=== PATIENT | female | born 1945 | race Caucasian/White ===

== ENCOUNTER 2017-06-04 06:45 | Inpatient (IN) | payer MEDICARE, BC ==
[~2017-06-04 06:45] MED LIST: CEFAZOLIN 2 Gram 2 GM/50 ML BAG IVPB ONE; CELECOXIB 100 MG CAPSULE PO ONE; FAMOTIDINE 20MG TABLET PO ONE; MECLIZINE 25 MG TABLET PO ONE; METOCLOPRAMIDE 10 MG TABLET PO ONE; VANCOMYCIN HCL 1,000 MG in DEXTROSE 5 % IN WATER 250 ML IVPB ONE
[2017-06-04 08:03] LABS: ABO GROUP A; ANTIBODY SCREEN NEGATIVE (NEGATIVE); RH TYPE POSITIVE
[2017-06-04] MEDS ORDERED: ACETAMINOPHEN W/ CODEINE 300MG/30MG TABLET PO PRN (10:52)
[2017-06-04] MEDS ORDERED: HYDROCODONE/APAP 10/325 TABLET PO PRN (10:52)
[2017-06-04] MEDS ORDERED: HYDROMORPHONE HCL 2 MG/ML VIAL IM PRN (10:52)
[2017-06-04] MEDS ORDERED: MAGNESIUM HYDROXIDE 30 ML UDC PO PRN (10:52)
[2017-06-04] MEDS ORDERED: NALOXONE 0.4 MG/1 ML VIAL IVP PRN (10:52)
[2017-06-04] MEDS ORDERED: ZOLPIDEM TARTRATE 5 MG TABLET PO PRN (10:52)
[2017-06-04] MEDS ORDERED: ONDANSETRON HCL IV 4 MG/2 ML VIAL IVP PRN (10:52)
[2017-06-04] MEDS ORDERED: BISACODYL 10 MG SUPP RC PRN (10:52)
[2017-06-04] MEDS ORDERED: AL HYDROX/MAG HYDROX 30ML UD PO PRN (10:52)
[2017-06-04] MEDS ORDERED: ACETAMINOPHEN W/ CODEINE 300MG/60MG TABLET PO PRN ×2 (10:52)
[2017-06-04] MEDS ORDERED: ACETAMINOPHEN 325 MG TAB PO PRN (10:52)
[2017-06-04] MEDS ORDERED: TRAMADOL HCL 50 MG TABLET PO PRN (10:52)
[2017-06-04] MEDS ORDERED: KETOROLAC 30 MG/ML VIAL IVP PRN ×2 (10:52)
[2017-06-04] MEDS ORDERED: TRAZODONE 50 MG TABLET PO PRN (11:14)
[2017-06-04] MEDS ORDERED: ALBUTEROL HFA 8 GM INHALER INH PRN (11:15)
[2017-06-04] MEDS: POTASSIUM CHLORIDE/D5-0.9%NACL 20 MEQ/1,000 ML BAG IV SCH ×2 (13:05→21:21)
[2017-06-04] MEDS ORDERED: HYDROMORPHONE PF 1MG/ML **AMPULE IV ONE ×2 (13:28→15:43)
--- NOTE | 2017-06-04 13:59 | Rehab Evaluation ---
Patient Information - Patient Information Diagnosis: DJD L Knee Ordered Treatment: PT Evaluate and Treat Status: Initial Evaluation Surgery: Yes (L TKA) Date of Surgery: 06/04/17 Past Medical/Surgical Hx: PAST MEDICAL/SURGICAL HISTORY Past Surgical History partial hyst tonsils back sx left wrist ORIF RCTR c scope EGD PMH - Respiratory Hx Respiratory Disorders Yes Hx Asthma Yes: cough varient asthma. bothers her in the morning and at night uses inhaler. Hx Bronchitis Yes Hx Pneumonia Yes Hx of Productive Cough Yes: in ams after using inhaler PMH - Cardiovascular Hx Cardiovascular Disorders Yes Hx Hypertension Yes: on meds good control Hx Irregular Heartbeat Yes: a fib dx'd 2013 on meds to control it. 24 HOUR MONITORING AFTER SX PER CARD Hx Heart Murmur Yes Exercise Tolerance Good Hx of Migraines Yes: hx of PMH - Neuro Hx Neurological Disorders Yes Hx Neuropathy Yes: feet Hx Weakness Yes: knees PMH - GI Hx Gastrointestinal Disorders Yes Hx Gastroesophageal Reflux Yes Hx Irritable Bowel Yes: constipation Comment: had bleed after polyp removal PMH - Hx Genitourinary Disorders Yes Hx Bladder Problem Yes: fallen bladder Comment: S/P hyst PMH - Endocrine Hx Endocrine Disorders No PMH - Musculoskeletal Hx Musculoskeletal Disorders Yes Hx Arthritis Yes Hx Back Injury Yes Hx Osteoporosis Yes PMH - Psych Hx Psychiatric Problems No PMH - Hematology/Oncology Hx Hematology/Oncology Yes Disorders Hx Anemia Yes Hx Blood Transfusion Reaction No Social History: Detail (The patient lives in a 2 story home with her . The patient has 3 steps to enter the home with one railing (side unspecified). The patient states that she will be using the second story once returning home, and the second story has a full flight of stairs to ascend/descend, with a railing on the right side ascending. The patient has a tub/shower combination with shower seat and hand-held shower head, but does not have grab bars. The toilet is standard height, and does not have grab bars present. The patient will be using a standard walker for ambulation, and will advance to a single point cane as she progresses) Precautions: [place], Other (WBAT on L) - Time With Patient Total Time Spent With Patient (Min): 30 Treatment Procedures: Detail (PT Initial Evaluation) Subjective Information - Subjective Information Per Patient (The patient reported no pain, nausea or dizziness prior to initating therapy. She did have complaints of itching.) Objective Data - Pain Pain Present: No Pain Intensity: 0 Pain Scale Used: Numeric (1 - 10) - Mental Status Patient Orientation: Oriented x3 - ROM Within normal limits (The patient was within functional limits for activities completed at initial evaluation. The patient was limited with L Knee ROM as expected s/p L TKA) - Strength/Tone Within normal limits (The patient was within functional limits for activities completed at initial evaluation. L Knee was limited as expected s/p L TKA) - Bed Mobility Independent (The patient was independent with transferring from supine to sit at the edge of the bed. She was independent with transferring back into bed after ambulation. She was independent with scooting to the middle of the bed.) - Transfers Independent (The patient was independent with sit to stand and stand to sit. Per nursing, she was independent with transferring to and from the toilet.) - Balance Balance Sitting: Good (No LOB with sitting at the bedside prior to ambulation) Balance Standing: Good (No LOB with immediate standing at the bedside. No LOB with gait activities completed.) - Sensation Intact - Gait Detail (The patient used a standard walker and WBAT on L during ambulation. She was able to ambulate to Room 19 and back (a total of 80 feet) without rest break. She had no complaints of pain with ambulation, and denied feelings of dizziness/nausea.) - Special Tests No Therapy Assessment - Therapy Assessment Detail (The patient was independent with bed mobility and transfers. The patient had limitations with ROM and strength in the L Knee as expected s/p L TKA. The patient tolerated gait activities without issues, but ability to ascend /descend stairs was not assessed at initial evaluation.) Patient Education - Patient Education Teaching Topic: Exercise/Activity (HEP was instructed and reviewed, which included: Heel Slides/Hamstring Sets, Quad Sets, SLR, Ankle Pumps and glute. sets. She was instructed to complete 10 reps, 1-2x/day or to tolerance.) Response: Return Demonstration, Verbalize Understanding Teaching Method: Discussion, Demonstration Teaching Recipient: Patient Barriers To Learning: None Problem List - Problem List Physical Therapy Problem List: Detail (1) Decreased ROM and strength as expected L TKA 2) Ability to ascend/descend stairs not assessed) Goals - Goals Physical Therapy Goals: 1) The patient will be independent in HEP to increase ROM and Strength in L Knee to increase function. 2) The patient will be able to ascend/descend a full flight of stairs to gain access to the second story safely. 3) The patient will be able to ascend/descend 13-14 stairs to safely enter the home. Prognosis - Prognosis Good Plan - Plan Physical Therapy Plan: The patient will be seen 1-2x/day M-F for gait training, including stairs, and LE strengthening activities.
[2017-06-04] MEDS ORDERED: BUPIVACAINE 0.5% W/EPI MPF 30 ML VIAL IVP ONE (14:00)
[2017-06-04] MEDS ORDERED: TRANEXAMIC ACID 1,000 MG/10 ML ML IV ONE ×2 (14:00)
[2017-06-04] MEDS ORDERED: 0.9 % SODIUM CHLORIDE 10 ML VIAL IVP ONE (14:00)
[2017-06-04] MEDS ORDERED: DIPHENHYDRAMINE HCL IV 50 MG/ML VIAL IVP ONE (15:43)
[2017-06-04] MEDS ORDERED: *PACU ONLY* KETAMINE HCL 10 MG/ML (20ML) VIAL IV ONE (15:43)
[2017-06-04] MEDS ORDERED: PROPOFOL 10 MG/ML VIAL IV ONE (15:43)
[2017-06-04] MEDS ORDERED: MIDAZOLAM HCL 2MG/2ML VIAL IV ONE (15:43)
[2017-06-04] MEDS ORDERED: ONDANSETRON HCL IV 4 MG/2 ML VIAL IVP ONE (15:43)
[2017-06-04] MEDS ORDERED: FENTANYL PF 100MCG/2ML VIAL IV ONE (15:43)
[2017-06-04] MEDS: CEFAZOLIN 2 Gram 2 GM/50 ML BAG IVPB SCH (15:46)
[2017-06-04] MEDS: PANTOPRAZOLE SODIUM 40 MG TABLET PO SCH (15:46)
--- NOTE | 2017-06-04 15:48 | Operative Note ---
DATE: 06/04/2017 PREOPERATIVE DIAGNOSIS: END-STAGE ARTHROSIS OF THE LEFT KNEE. POSTOPERATIVE DIAGNOSIS: END-STAGE ARTHROSIS OF THE LEFT KNEE. PROCEDURE: Cemented left total knee arthroplasty using [employer] [place] II components with a size 5 [place] Chrome femur, size 4 stemmed tibial base plate, a 9 mm lipped tibial insert, and a 32 mm all-plastic patella. STAFF SURGEON: KYLEE TURNER M.D. ANESTHESIA: SPINAL. PREPARATION: CHLORAPREP. INDIVIDUAL CONSIDERATIONS: NONE. PROCEDURE: The patient was taken to the Operating Room and placed supine on the operating table. She had a successful induction of a spinal anesthetic. Her left lower extremity was prepped and draped in the usual fashion. The patient had a midline approach to the knee. The limb was elevated and the tourniquet was inflated to 250 mmHg. Sharp dissection was carried down through the skin and subcutaneous tissue. Small veins were coagulated with a Bovie. A medial arthrotomy was performed. The patella was everted and the knee was flexed. The patient had basically bone loss and exposed bone in the medial and some the patellofemoral compartments. ACL was sacrificed, provisional anterior meniscectomies were performed, capsule was released from the medial proximal tibia, and the fat pad was resected. The initial femoral military pilot hole was then made freehand. The intramedullary femoral cutting jig was placed. It was cut in 7 degrees of valgus and adjusted for rotation and secured with pins for a 10 mm resection. The initial transverse cut was then made. Skin guide was placed in the anterior and posterior military pilot holes and it was found that a size 5 would be appropriate. The anterior and posterior cuts followed by chamfer cuts were made , osteophytes removed, and a size 5 trial was placed and found to fit well. The tibia was brought forward and the remainder of the meniscal remnants were removed with a Bovie. The extra-articular tibial cutting jig was placed and it was cut in neutral with a 3 degree AP slope. Care was taken to adjust for rotation and flexion using the extra-articular alignment guide and riaz landmarks. It was set for a 9 mm resection, keyed off the high lateral side, and secured with pins. When cutting the tibia, care was taken to preserve the PCL insertion on the tibia. After removing large medial osteophytes, it was found that a 9 mm trial and baseplate trial, there was excellent motion and stability. Ligamentous balance, rotation, and alignment were thought to be normal. The femoral military pilot holes were impacted, and a triflange tibial stamp was impacted, and these trial components were removed. The patient had a thick patella and roughly 9 mm of bone was removed freehand. I was easily to be able to fit a 32 mm patella and the three military pilot holes were drilled. The tourniquet was let down briefly to get bleeders posteriorly then placed back up again. The knee was then thoroughly irrigated out with pulsatile Betadine and saline to remove any visual or palpable debris. Bony surfaces were then dried. A size 4 stemmed tibial baseplate was cemented into place, followed by impaction of the 9 mm lipped tibial insert, followed by cementing in a size 5 [place] Chrome femur, followed by cementing in the 32 mm patella. Implant surfaces were compressed, excess cement was removed, and after the cement had set, there was excellent motion and stability. Ligamentous balance, rotation alignment, and patellofemoral tracking were normal. No lateral release was required. Again, tourniquet let down, hemostasis was obtained with a Bovie. Irrigation again was completed and the capsule was the closed with a running #2 Quill. Prior to this, I infiltrated the skin, subcutaneous tissue, and periosteum with 30 mL of 0.50% Marcaine with Epinephrine. The subcut was closed in layers with running 0 Quill and the skin was closed with jennifer. The patient did receive a gram of Tranexamic Acid preoperatively. I mixed a gram of Tranexamic Acid with 30 mL of saline and injected it into the knee through a sterile 18-gauge needle and a sterile [place]kee compressive Aquacel-type dressing was applied. The patient tolerated the procedures well, needle and sponge counts were correct, estimated blood loss was minimal, and she was taken back to the Recovery Room in good condition. There were no complications. cc: Dr. Marc Andre JOB NUMBER: [id number] MTDD
[2017-06-04] MEDS: DIPHENHYDRAMINE HCL 25 MG CAPSULE PO PRN (20:18)
[2017-06-04] MEDS: FLECAINIDE 100 MG PO SCH ×2 (20:22→21:25)
[2017-06-04] MEDS: DOCUSATE SODIUM 100 MG CAPSULE PO SCH (21:18)
[2017-06-04] MEDS ORDERED: MONTELUKAST SODIUM 10MG TABLET PO SCH (22:00)
[2017-06-04] MEDS: HYDROCODONE/APAP 10/325 TABLET PO PRN (22:00)
[2017-06-05] MEDS: CEFAZOLIN 2 Gram 2 GM/50 ML BAG IVPB SCH ×2 (00:02→07:46)
[2017-06-05] MEDS: HYDROCODONE/APAP 10/325 TABLET PO PRN ×4 (01:48→14:17)
[2017-06-05] MEDS: POTASSIUM CHLORIDE/D5-0.9%NACL 20 MEQ/1,000 ML BAG IV SCH ×2 (05:30→13:32)
[2017-06-05] MEDS: PANTOPRAZOLE SODIUM 40 MG TABLET PO SCH (06:30)
[2017-06-05] MEDS: FLECAINIDE 100 MG PO SCH ×2 (06:33→10:05)
[2017-06-05 07:10] LABS: HEMATOCRIT 37.2 % (35.0-47.0); HEMOGLOBIN 11.4 gm/dl (11.6-16.0)
[2017-06-05 07:26] LABS: BLOOD UREA NITROGEN 10 mg/dL (8-23); CREATININE 0.6 mg/dL (0.5-0.9); EST GLOMERULAR FILTRATION RATE > 60 mL/min; GLUCOSE,RANDOM 99 mg/dL (74-109)
[2017-06-05] MEDS: DIPHENHYDRAMINE HCL 25 MG CAPSULE PO PRN (07:57)
[2017-06-05] MEDS ORDERED: AMLODIPINE BESYLATE 5MG TAB PO SCH (10:00)
[2017-06-05] MEDS ORDERED: MULTIVITAMINS/MINERALS TABLET PO SCH (10:00)
[2017-06-05] MEDS ORDERED: FERROUS SULFATE 325 MG TAB PO SCH (10:00)
[2017-06-05] MEDS ORDERED: ASPIRIN 325 MG TAB ENTERIC-COATED PO SCH (10:00)
[2017-06-05] MEDS ORDERED: CALCIUM CARBONATE 500 MG TAB.CHEW PO SCH (10:00)
[2017-06-05] MEDS ORDERED: RIVAROXABAN 10 MG TABLET PO SCH (10:00)
--- NOTE | 2017-06-05 10:02 | Physical Therapy Tx Note ---
Physical Therapy Tx Note - Treatment Note Tolerated: Good Total Time Spent With Patient: 25 Physical Therapy Tx Note: Detail (The patient was sitting in her chair upon arrival. The patient was independent with transferring from sit to stand. She was able to ambulate from her room to the nurse's station (about 30 feet) with a standard walker and WBAT on L. She was then able to ascend/descend 10 stairs with supervision and hand-hold assist x 1. She was then able to ambulate from the nurse's station to Room 28/29 back to her room (about 90 feet total) with standard walker and WBAT on L. She was able to transfer from stand to sit. She tolerated therapy well, and has completed all therapy skills to be discharged home.) Physical Therapy Problem List: Detail (1) Decreased ROM and strength as expected L TKA 2) Ability to ascend/descend stairs not assessed) Physical Therapy Goals: 1) The patient will be independent in HEP to increase ROM and Strength in L Knee to increase function - MET. 2) The patient will be able to ascend/descend a full flight of stairs (13-14) to gain access to the second story safely - MET. 3) The patient will be able to ascend/descend 3-4 stairs to safely enter the home. - MET Prognosis: Good Physical Therapy Plan: The patient has completed all inpatient Physical Therapy skills and is discharged from inpatient PT. She would benefit from continued Home PT for increased functional ability and LE ROM and strengthening activities.
[2017-06-05] MEDS: DOCUSATE SODIUM 100 MG CAPSULE PO SCH (10:03)
--- NOTE | 2017-06-05 10:24 | Rehab Evaluation ---
Patient Information - Patient Information Diagnosis: DJD L Knee Ordered Treatment: OT Evaluate and Treat Status: Initial Evaluation Surgery: Yes (L TKA) Date of Surgery: 06/04/17 Past Medical/Surgical Hx: PAST MEDICAL/SURGICAL HISTORY Past Surgical History partial hyst tonsils back sx left wrist ORIF RCTR c scope EGD PMH - Respiratory Hx Respiratory Disorders Yes Hx Asthma Yes: cough varient asthma. bothers her in the morning and at night uses inhaler. Hx Bronchitis Yes Hx Pneumonia Yes Hx of Productive Cough Yes: in ams after using inhaler PMH - Cardiovascular Hx Cardiovascular Disorders Yes Hx Hypertension Yes: on meds good control Hx Irregular Heartbeat Yes: a fib dx'd 2013 on meds to control it. 24 HOUR MONITORING AFTER SX PER CARD Hx Heart Murmur Yes Exercise Tolerance Good Hx of Migraines Yes: hx of PMH - Neuro Hx Neurological Disorders Yes Hx Neuropathy Yes: feet Hx Weakness Yes: knees PMH - GI Hx Gastrointestinal Disorders Yes Hx Gastroesophageal Reflux Yes Hx Irritable Bowel Yes: constipation Comment: had bleed after polyp removal PMH - Hx Genitourinary Disorders Yes Hx Bladder Problem Yes: fallen bladder Comment: S/P hyst PMH - Endocrine Hx Endocrine Disorders No PMH - Musculoskeletal Hx Musculoskeletal Disorders Yes Hx Arthritis Yes Hx Back Injury Yes Hx Osteoporosis Yes PMH - Psych Hx Psychiatric Problems No PMH - Hematology/Oncology Hx Hematology/Oncology Yes Disorders Hx Anemia Yes Hx Blood Transfusion Reaction No Premorbid Status: Detail (Patient lives with spouse in a 2 story house with basement. Her bedroom is on the second floor and she has the laundry in the basement. She has 3 steps at the entrance with "shelves" that she can hold onto. She has a tub/shower combination and usually takes a bath although she has a shower bench and hand held shower and will be using that. She has a standard height toilet, no grab bars. She is typically responsible for all home mgmt, meal prep and laundry although her spouse will be assisting. She has a standard walker and straight cane.) Precautions: [place], Other (WBAT on L) - Time With Patient Total Time Spent With Patient (Min): 40 Treatment Procedures: Detail (OT eval low complexity) Subjective Information - Subjective Information Per Patient Objective Data - Pain Pain Present: Yes (04/06) - Mental Status Patient Orientation: Oriented x3 - Visual Perception Appears within normal limits for therapeutic activities (Pt wears glasses.) - ROM Within normal limits (Srinivas UE AROM WNL. Pt wearing left wrist splint due to carpal tunnel syndrome.) - Strength/Tone Within normal limits (Srinivas UE strength WNL) - Coordination Appears within normal limits for therapeutic activities - Bed Mobility Independent (Ind with supine to sit) - Transfers Independent (Ind with sit to stand from EOB) - Balance Balance Sitting: Good Balance Standing: Good - Sensation Intact - Gait Detail (Pt ambulating in room with standard walker Indly.) - ADL's/IADL's Detail (Pt educated and demonstrated learning of modified dressing techniques. She was Ind with total body dressing including socks and tennis shoes. Reviewed modifications for meal prep, showering, laundry and home mgmt tasks, pt verbalized learning.) Therapy Assessment - Therapy Assessment Detail (Pt is safe and Ind with self care activities using modified techniques.) Problem List - Problem List Physical Therapy Problem List: Detail (1) Decreased ROM and strength as expected L TKA 2) Ability to ascend/descend stairs not assessed) Occupational Therapy Problem List: Detail (No current OT problems identified.) Goals - Goals Physical Therapy Goals: 1) The patient will be independent in HEP to increase ROM and Strength in L Knee to increase function - MET. 2) The patient will be able to ascend/descend a full flight of stairs (13-14) to gain access to the second story safely - MET. 3) The patient will be able to ascend/descend 3-4 stairs to safely enter the home. - MET Occupational Therapy Goals: No current OT goals identified. Prognosis - Prognosis Good Plan - Plan Physical Therapy Plan: The patient has completed all inpatient Physical Therapy skills and is discharged from inpatient PT. She would benefit from continued Home PT for increased functional ability and LE ROM and strengthening activities. Occupational Therapy Plan: No further IP OT recommended. Thank you for this referral.
--- NOTE | 2017-06-05 19:51 | Discharge Summary ---
DATE OF ADMISSION: 06/04/17 DATE OF DISCHARGE: 06/05/17 DATE OF SURGERY: 06/04/17 HISTORY: Noemí is a delightful 71-year-old female who presents with end-stage arthrosis of her left knee. She was admitted after a left total knee arthroplasty. Postoperatively she did great. She was independent the night of surgery. Her discharge hemoglobin was 11.4. She did not require transfusion. DISCHARGE INSTRUCTIONS: The plan is to discharge her to home in the care of her family. Home PT and Visiting Nurse have been arranged. She will be given [place] for pain. She will finish up her five days of Xarelto and continue on with her regular Aspirin that she takes daily. The Visiting Nurse will remove her sutures in two weeks. She will follow-up at my office in four weeks. Her discharge condition was good. FINAL DIAGNOSIS/PRIMARY DIAGNOSIS: END-STAGE ARTHROSIS OF THE LEFT KNEE. OPERATIONS AND PROCEDURES: CEMENTED LEFT TOTAL KNEE ARTHROPLASTY. JOB NUMBER: [id number] MTDD
== END 2017-06-05 17:35 | disposition home or self-care (01) | DRG 470 ==
LOC: MEDSURG 06:45
PROVIDERS: ADMIT Orthopaedic Surgery; ATTEND Orthopaedic Surgery
PROC: 0SRD069 Replacement of Left Knee Joint with Oxidized Zirconium on Polyethylene Synthetic Substitute, Cemented, Open Approach (ICD-10-PCS; principal; 2017-06-04 09:00)
DX: M17.12 Unilateral primary osteoarthritis, left knee (principal); I10 Essential (primary) hypertension; I48.91 Unspecified atrial fibrillation
CPT/HCPCS: 80048; 85014; 85018; 86850; 86900; 86901; 97530; J1170; J1200; J2405; J3480; J7060

== ENCOUNTER 2017-07-30 09:49 | Day surgery (SDC) | payer MEDICARE, BC ==
[~2017-07-30 09:49] MED LIST changes: -MECLIZINE 25 MG TABLET PO ONE; +SCOPOLAMINE 1 PATCH TDSY TD ONE
[2017-07-30] MEDS ORDERED: ROPIVACAINE HCL (NAROPIN) /PF 5MG/ML 20ML VIAL IV ONE (09:50)
[2017-07-30] MEDS ORDERED: PROPOFOL 10 MG/ML VIAL IV ONE (09:50)
[2017-07-30] MEDS ORDERED: MIDAZOLAM HCL 2MG/2ML VIAL IV ONE (09:50)
[2017-07-30] MEDS ORDERED: ONDANSETRON HCL IV 4 MG/2 ML VIAL IVP ONE (09:50)
[2017-07-30] MEDS ORDERED: TRANEXAMIC ACID 1,000 MG/10 ML ML IV ONE (09:50)
[2017-07-30] MEDS ORDERED: DEXAMETHASONE 4 MG/ML 1ML VIAL IVP ONE (09:50)
[2017-07-30] MEDS ORDERED: *PACU ONLY* KETAMINE HCL 10 MG/ML (20ML) VIAL IV ONE (09:50)
[2017-07-30] MEDS ORDERED: KETOROLAC 30 MG/ML VIAL IVP ONE (09:50)
[2017-07-30] MEDS ORDERED: BUPIVACAINE 0.5% W/EPI MPF 30 ML VIAL IVP ONE (09:50)
[2017-07-30] MEDS ORDERED: ONDANSETRON HCL IV 4 MG/2 ML VIAL IVP PRN (14:36)
[2017-07-30] MEDS ORDERED: HYDROCODONE/APAP 10/325 TABLET PO PRN (14:36)
[2017-07-30] MEDS ORDERED: MAGNESIUM HYDROXIDE 30 ML UDC PO PRN (14:36)
[2017-07-30] MEDS ORDERED: ACETAMINOPHEN 325 MG TAB PO PRN (14:36)
[2017-07-30] MEDS ORDERED: BISACODYL 10 MG SUPP RC PRN (14:36)
[2017-07-30] MEDS ORDERED: NALOXONE 0.4 MG/1 ML VIAL IVP PRN (14:36)
[2017-07-30] MEDS ORDERED: AL HYDROX/MAG HYDROX 30ML UD PO PRN (14:36)
[2017-07-30] MEDS ORDERED: DIPHENHYDRAMINE HCL 25 MG CAPSULE PO PRN (14:36)
[2017-07-30] MEDS ORDERED: KETOROLAC 30 MG/ML VIAL IVP PRN ×2 (14:36)
[2017-07-30] MEDS ORDERED: ZOLPIDEM TARTRATE 5 MG TABLET PO PRN (14:36)
[2017-07-30] MEDS ORDERED: HYDROCODONE/APAP 5/325MG TABLET PO PRN (14:36)
[2017-07-30] MEDS ORDERED: HYDROMORPHONE HCL 2 MG/ML VIAL IM PRN (14:36)
[2017-07-30] MEDS ORDERED: TRAZODONE 50 MG TABLET PO PRN (14:53)
[2017-07-30] MEDS ORDERED: ALBUTEROL HFA 8 GM INHALER INH PRN (14:54)
[2017-07-30] MEDS ORDERED: PATIENT OWN MED: VENTOLIN HFA INH PRN (15:15)
--- NOTE | 2017-07-30 17:34 | Rehab Evaluation ---
Patient Information - Patient Information Diagnosis: DJD R knee Ordered Treatment: PT Evaluate and Treat Status: Initial Evaluation Surgery: Yes (TKR ) Date of Surgery: 07/30/17 Past Medical/Surgical Hx: PAST MEDICAL/SURGICAL HISTORY Past Surgical History LTKA 06-04-17 partial hyst tonsils back sx left wrist ORIF RCTR c scope EGD PMH - Respiratory Hx Respiratory Disorders Yes Hx Asthma Yes: cough varient asthma. bothers her in the morning and at night uses inhaler. Hx Bronchitis Yes Hx Pneumonia Yes PMH - Cardiovascular Hx Cardiovascular Disorders Yes Hx Hypertension Yes: on meds good control Hx Irregular Heartbeat Yes: a fib dx'd 2013 on meds to control it. 24 HOUR MONITORING AFTER SX PER CARD Hx Heart Murmur Yes Exercise Tolerance Good Hx of Migraines Yes: hx of PMH - Neuro Hx Neurological Disorders Yes Hx Neuropathy Yes: feet Hx Weakness Yes: knees PMH - GI Hx Gastrointestinal Disorders Yes Hx Gastroesophageal Reflux Yes Hx Irritable Bowel Yes: constipation Hx Weight Loss/Weight Gain Yes: 7 lbs after left knee Comment: had bleed after polyp removal PMH - Hx Genitourinary Disorders Yes Hx Bladder Problem Yes: fallen bladder Comment: S/P hyst PMH - Endocrine Hx Endocrine Disorders No Hx Diabetes No Hx Thyroid Disease No PMH - Musculoskeletal Hx Musculoskeletal Disorders Yes Hx Arthritis Yes Hx Back Injury Yes Hx Osteoporosis Yes PMH - Psych Hx Psychiatric Problems No PMH - Hematology/Oncology Hx Hematology/Oncology Yes Disorders Hx Anemia Yes Hx Blood Transfusion Reaction No Premorbid Status: Detail (The patient was ambulating with cane and independent with mobility prior to surgery.) Social History: Detail (The patien lives with spouse in a 2 story home with bedroom on the second floor and bathrooms on the first and second floor. The home has 13 steps to the second floor and 3 steps with no handrails at the enterance. The patient's bathroom is equipped with tub/shower combination with a shower bench and a standard height toilet.) Precautions: [place], [place], Other (WBAT on the R) - Time With Patient Total Time Spent With Patient (Min): 30 Treatment Procedures: Detail (Initial Evaluation) Subjective Information - Subjective Information Per Patient (The patient complained of R knee pain.) Objective Data - Pain Pain Present: Yes Pain Intensity: 8 Pain Scale Used: Numeric (1 - 10) - Mental Status Patient Orientation: Oriented x3 - Visual Perception Appears within normal limits for therapeutic activities - ROM Not within normal limits (The patient's R knee was not test due to s/p surgery, all other AROM was WNL.) - Strength/Tone Not within normal limits (The patient's R LE strength was not tested secondary to s/p surgery, however was functional ie: the patient was able to complete a SLR. The patient's LE strength was generally 4 to 5/5.) - Bed Mobility Independent (The patient was independent with supine to and from sit transfer and scooting up in bed.) - Transfers Independent (The patient was independent with sit to and from stand transfer.) - Balance Balance Sitting: Good Balance Standing: Good - Sensation Intact - Gait Detail (The patient ambulated with 2 wheeled walker WBAT on the R LE with supervision for safety only a distance of 75 feet x 1.) Therapy Assessment - Therapy Assessment Detail (The patient was independent with bed mobility, transfers and ambulation. Feel the patient will progress well with mobility.) Problem List - Problem List Physical Therapy Problem List: Detail (1) Decreased R knee AROM and R LE strength as to be expected following surgery. 2) non ambulatory on stairs) Goals - Goals Physical Therapy Goals: 1) The patient will ambulate on a flight of stairs with supervision for safety. 2) The patient will be independent with TKA HEP.
[2017-07-30] MEDS: POTASSIUM CHLORIDE/D5-0.9%NACL 20 MEQ/1,000 ML BAG IV SCH (18:28)
[2017-07-30] MEDS: CEFAZOLIN 2 Gram 2 GM/50 ML BAG IVPB SCH (20:48)
[2017-07-30] MEDS: DOCUSATE SODIUM 100 MG CAPSULE PO SCH (21:36)
[2017-07-30] MEDS ORDERED: MONTELUKAST SODIUM 10MG TABLET PO SCH (22:00)
[2017-07-30] MEDS: PANTOPRAZOLE SODIUM 40 MG TABLET PO SCH (22:07)
[2017-07-30] MEDS: FLECAINIDE 100 MG PO SCH (22:09)
[2017-07-30] MEDS: HYDROCODONE/APAP 10/325 TABLET PO PRN (22:11)
[2017-07-31] MEDS: HYDROCODONE/APAP 10/325 TABLET PO PRN ×4 (02:23→11:49)
[2017-07-31] MEDS: POTASSIUM CHLORIDE/D5-0.9%NACL 20 MEQ/1,000 ML BAG IV SCH ×2 (02:25→08:17)
[2017-07-31] MEDS: CEFAZOLIN 2 Gram 2 GM/50 ML BAG IVPB SCH ×2 (03:32→13:08)
[2017-07-31] MEDS: PANTOPRAZOLE SODIUM 40 MG TABLET PO SCH (06:10)
[2017-07-31 06:50] LABS: HEMATOCRIT 31.5 % (35.0-47.0); HEMOGLOBIN 9.9 gm/dl (11.6-16.0)
[2017-07-31 07:11] LABS: BLOOD UREA NITROGEN 9 mg/dL (8-23); CREATININE 0.6 mg/dL (0.5-0.9); EST GLOMERULAR FILTRATION RATE > 60 mL/min; GLUCOSE,RANDOM 131 mg/dL (74-109)
[2017-07-31] MEDS ORDERED: FERROUS SULFATE 325 MG TAB PO SCH (10:00)
[2017-07-31] MEDS ORDERED: CALCIUM CARBONATE 500 MG TAB.CHEW PO SCH (10:00)
[2017-07-31] MEDS ORDERED: ASPIRIN 325 MG TAB ENTERIC-COATED PO SCH (10:00)
[2017-07-31] MEDS ORDERED: RIVAROXABAN 10 MG TABLET PO SCH (10:00)
[2017-07-31] MEDS ORDERED: AMLODIPINE BESYLATE 5MG TAB PO SCH (10:00)
[2017-07-31] MEDS ORDERED: MULTIVITAMINS/MINERALS TABLET PO SCH (10:00)
--- NOTE | 2017-07-31 11:19 | Physical Therapy Tx Note ---
Physical Therapy Tx Note - Treatment Note Tolerated: Good Total Time Spent With Patient: 30 Physical Therapy Tx Note: Detail (Patient was reclined in bed upon ENGINEERING TEAM SUPERVISOR arrival. Patient states right knee sore. Patient states had just taken pain meds prior to ENGINEERING TEAM SUPERVISOR arrival. Patient transferred supine to sit independently. Patient transferred sit to and from stand SBA x1. Patient ambulated 78 feet with wheeled walker SBA x1. Patient ascended and descended 3 steps, then 9 steps SBA x1. Patient ambulated 394 feet with wheeled walker SBA x1. Patient transferred sit to supine independently. Patient performed the following exercises x10 reps each: ankle pumps, glut squeezes, quad sets, heel slides, hamstring sets, and SLR. Patient reports right knee painful after treatment. Patient was left reclined in bed with call light within reach. Patient has passed all inpatient PT goals. Patient discharged from inpatient PT at this time.) Physical Therapy Problem List: Detail (1) Decreased R knee AROM and R LE strength as to be expected following surgery. 2) non ambulatory on stairs) Physical Therapy Goals: Patient discharged from inpatient PT at this time, as all inpatient PT goals are met. Prognosis: Good
[2017-07-31] MEDS: DOCUSATE SODIUM 100 MG CAPSULE PO SCH (11:41)
[2017-07-31] MEDS: FLECAINIDE 100 MG PO SCH (11:49)
--- NOTE | 2017-07-31 14:42 | Rehab Evaluation ---
Patient Information - Patient Information Diagnosis: DJD R knee Ordered Treatment: OT Evaluate and Treat Status: Initial Evaluation Surgery: Yes (TKR ) Date of Surgery: 07/30/17 Past Medical/Surgical Hx: PAST MEDICAL/SURGICAL HISTORY Past Surgical History LTKA 06-04-17 partial hyst tonsils back sx left wrist ORIF RCTR c scope EGD PMH - Respiratory Hx Respiratory Disorders Yes Hx Asthma Yes: cough varient asthma. bothers her in the morning and at night uses inhaler. Hx Bronchitis Yes Hx Pneumonia Yes PMH - Cardiovascular Hx Cardiovascular Disorders Yes Hx Hypertension Yes: on meds good control Hx Irregular Heartbeat Yes: a fib dx'd 2013 on meds to control it. 24 HOUR MONITORING AFTER SX PER CARD Hx Heart Murmur Yes Exercise Tolerance Good Hx of Migraines Yes: hx of PMH - Neuro Hx Neurological Disorders Yes Hx Neuropathy Yes: feet Hx Weakness Yes: knees PMH - GI Hx Gastrointestinal Disorders Yes Hx Gastroesophageal Reflux Yes Hx Irritable Bowel Yes: constipation Hx Weight Loss/Weight Gain Yes: 7 lbs after left knee Comment: had bleed after polyp removal PMH - Hx Genitourinary Disorders Yes Hx Bladder Problem Yes: fallen bladder Comment: S/P hyst PMH - Endocrine Hx Endocrine Disorders No Hx Diabetes No Hx Thyroid Disease No PMH - Musculoskeletal Hx Musculoskeletal Disorders Yes Hx Arthritis Yes Hx Back Injury Yes Hx Osteoporosis Yes PMH - Psych Hx Psychiatric Problems No PMH - Hematology/Oncology Hx Hematology/Oncology Yes Disorders Hx Anemia Yes Hx Blood Transfusion Reaction No Premorbid Status: Detail (The patient was ambulating with cane and independent with mobility prior to surgery.) Social History: Detail (The patient lives with spouse in a 2 story home with bedroom on the second floor and bathrooms on the first and second floor. The home has 13 steps to the second floor and 3 steps with no handrails at the entrance. The patient's bathroom is equipped with tub/shower combination with a shower bench and hand held shower and a standard height toilet. She reports her spouse assists her with transferring into the shower and he assists with laundry, home mgmt and meal prep. She has a standard walker and a straight cane.) Precautions: [place], Fall, Other (WBAT on the R) - Time With Patient Total Time Spent With Patient (Min): 40 Treatment Procedures: Detail (OT eval low complexity) Subjective Information - Subjective Information Per Patient Objective Data - Pain Pain Present: Yes (11/04) - Mental Status Patient Orientation: Oriented x3 - Visual Perception Appears within normal limits for therapeutic activities - ROM Within normal limits (Srinivas UE AROM WNL) - Strength/Tone Within normal limits (Srinivas UE strength WNL) - Coordination Appears within normal limits for therapeutic activities - Bed Mobility Independent (Ind with supine to sit) - Transfers Independent (Ind with sit to stand) - Balance Balance Sitting: Good Balance Standing: Good - Sensation Intact - Gait Detail (Pt ambulating with walker in room.) - ADL's/IADL's Detail (Pt reports she was Ind with donning pants and she was able to demonstrate Ind with donning slippers. She reports spouse will assist with all needs and she recently had surgery and had no difficulty.) Therapy Assessment - Therapy Assessment Detail (Pt reports no concerns with ADLs after discharge and spouse will be assisting as needed.) Problem List - Problem List Physical Therapy Problem List: Detail (1) Decreased R knee AROM and R LE strength as to be expected following surgery. 2) non ambulatory on stairs) Occupational Therapy Problem List: Detail (No current OT problems identified.) Goals - Goals Physical Therapy Goals: Patient discharged from inpatient PT at this time, as all inpatient PT goals are met. Occupational Therapy Goals: No current OT goals identified. Prognosis - Prognosis Good Plan - Plan Occupational Therapy Plan: Discharge from IP OT at this time. Thank you for this referral.
--- NOTE | 2017-07-31 19:59 | Operative Note ---
DATE: 07/30/2017 PREOPERATIVE DIAGNOSIS: END-STAGE ARTHROSIS OF THE RIGHT KNEE. POSTOPERATIVE DIAGNOSIS: END-STAGE ARTHROSIS OF THE RIGHT KNEE. PROCEDURE: CEMENTED RIGHT TOTAL KNEE ARTHROPLASTY USING QUICK & NEPHEW JENIFER II COMPONENTS, WITH A SIZE 5 COBALT CHROME FEMUR, SIZE 4 STEMMED TIBIAL BASEPLATE, A 9 MM LIPPED TIBIAL INSERT, AND A 35 MM ALL-PLASTIC PATELLA. STAFF SURGEON: KYLEE TURNER M.D. ANESTHESIA: SPINAL. PREPARATION: CHLORAPREP. INDIVIDUAL CONSIDERATIONS: NONE. PROCEDURE: The patient was taken to the Operating Room and placed supine on the operating table. She had a successful induction of a spinal anesthetic. Her right lower extremity was prepped and then draped in the usual fashion. The patient had a midline approach to the knee. The limb was elevated and the tourniquet was inflated to 250 mmHg. Sharp dissection carried down through the skin and subcutaneous tissue. Small veins were coagulated with a Bovie. A medial arthrotomy was performed. The patella was everted and the knee was flexed. She had [id number] contact medially with bone loss medially. The fat pad was resected, the ACL was sacrificed, provisional anterior meniscectomies were performed, and the capsule was released from the medial proximal tibia. The initial femoral master pilot hole was then made free hand. The intramedullary femoral cutting jig was placed. It was cut in 7.0 degrees of valgus and adjusted for rotation and secured with pins for a 10 mm resection. The initial transverse cut was then made. A skin guide was placed for the anterior and posterior master pilot holes. The anterior and posterior cuts were made for a size 5 followed by chamfer cuts, osteophytes were removed, and a size 5 trial was placed and found to fit well. The tibia was brought forward and the remainder of the meniscal remnants were removed with a Bovie. The extraarticular tibial cutting jig was placed. It was cut in neutral with a 3-degree AP slope. Care was taken to adjust for rotation and flexion using the extraarticular alignment guide and bony landmarks. It was set for a 9 mm resection, keyed off the high lateral side and secured with pins. When cutting the tibia, care was taken to preserve the PCL insertion on the tibia. Osteophytes were removed and I found that a size 4 baseplate would fit appropriately. It was adjusted for rotation and secured with pins. With a 9 mm trial and the femoral trial, there was excellent motion and stability. Ligamentous balance, rotation, and alignment were thought to be normal. The femoral master pilot holes were impacted and the triflange tibial stamp was impacted and these trial components were removed. The patient had a reasonably thick patella and roughly 9 mm of bone was removed free hand. I was able to fit a 35 patella and the three master pilot holes were drilled. The tourniquet was then taken down briefly to get bleeders posteriorly and then placed back up again. The knee was then thoroughly irrigated out with pulsatile Betadine and saline to remove any visual or palpable debris. The bony surfaces were then dried. A size 4 stemmed tibial baseplate was cemented into place followed by impaction of the 9 mm lipped tibial insert followed by cementing in the size 5 [place] Chrome femur followed by cementing in of the 35 mm patella. Implant surfaces were compressed, excess cement was removed and after the cement had set, there was excellent motion and stability. Ligamentous balance, rotation, alignment, and patellofemoral tracking were normal. No lateral release was required. After irrigation, the tourniquet was again let down and hemostasis was obtained with a Bovie. The skin and subcutaneous tissues were then infiltrated with 30 mL of 0.5% Marcaine with Epinephrine. The capsule was then closed with a running #2 Quill. The subcu was closed in layers with running #0 Quill. The skin was closed with jennifer. The patient did receive 1 gram of Tranexamic Acid preoperatively. I mixed 1 gram of Tranexamic acid with 30 mL of saline and injected it into the knee through a sterile #18 gauge needle and a sterile Bulkee compressive DARRELL-type dressing was applied. The patient tolerated the procedure well. Needle and sponge counts were correct , estimated blood loss was minimal, and she was taken back to Recovery in good condition. There were no complications. JOB NUMBER: [id number] [facility]
--- NOTE | 2017-07-31 20:40 | Discharge Summary ---
DATE OF ADMISSION: 07/30/2017 DATE OF DISCHARGE: 07/31/2017 DATE OF SURGERY: 07/30/2017 HISTORY: Noemí is a delightful 72-year-old female who presents with end-stage arthrosis of her right knee. She was admitted after right total knee arthroplasty. Postoperatively, she did well. Her hospital course was unremarkable. Discharge hemoglobin was 9.9. She did not require transfusion. DISCHARGE INSTRUCTIONS: The plan is to discharge her to home in the care of her family. Home PT and Visiting Nurse has been arranged. She will be given Douglas for pain and Xarelto and Aspirin for DVT prophylaxis. She will follow-up in my office in four weeks. The Visiting Nurse will remove her sutures in two weeks. Her discharge condition was good. FINAL DIAGNOSIS/PRIMARY DIAGNOSIS: END-STAGE ARTHROSIS OF THE RIGHT KNEE. SECONDARY DIAGNOSES: OPERATIVE BLOOD LOSS ANEMIA. OPERATIONS AND PROCEDURES: CEMENTED RIGHT TOTAL KNEE ARTHROPLASTY. JOB NUMBER: [id number] [facility]
== END 2017-07-31 16:50 | disposition home health service (06) ==
LOC: SUR 09:49 → MEDSURG 15:10 → SUR 07-31 16:50
PROVIDERS: ATTEND Orthopaedic Surgery
DX: M17.11 Unilateral primary osteoarthritis, right knee (principal); I10 Essential (primary) hypertension; K21.9 Gastro-esophageal reflux disease without esophagitis; I48.91 Unspecified atrial fibrillation; Z79.01 Long term (current) use of anticoagulants
CPT/HCPCS: 80048; 85014; 85018; 97110; 97530; C1776; J1885; J2405; J3480; J7060